=== PATIENT | male | born 1990 | race Caucasian/White ===

== ENCOUNTER 2018-02-19 11:25 | Emergency (ER) | payer BC ==
[~2018-02-19] VITALS: Ht 185.4 cm; Wt 83.2 kg
[2018-02-19 11:29] VITALS: Ht 185.4 cm; Wt 83.2 kg
--- NOTE | 2018-02-19 13:00 | DIAGNOSTIC IMAGING REPORT ---
CHEST ONE VIEW PORTABLE CLINICAL HISTORY: Left-sided chest pain SHORTNESS OF BREATH COMPARISON STUDY: No previous studies for comparison. FINDINGS: The heart is normal in size. There is no failure. There is no focal pulmonary consolidation. There are no pleural effusions. There is a 39 mm left apical pneumothorax.[ IMPRESSION: 39 mm left apical pneumothorax. Electronically signed by: Chon Puri M.D. 02/19/2018 12:58 PM Dictated Date/Time: 02/19/2018 12:57 PM
--- NOTE | 2018-02-19 14:39 | EMERGENCY ROOM VISIT NOTE ---
History Report prepared by Deshaun: Zen Romeo Under the Supervision of: Dr. Camilo Dunn D.O. First contact with patient: 11:45 Chief Complaint: SHORTNESS OF BREATH Stated Complaint: CHEST PAIN, SHORTNESS OF BREATH, SENT BY [facility] History of Present Illness The patient is a 28 year old male who presents to the Emergency Room with complaints of persistent pain in he left shoulder blade and chest that began on Sunday, 3 days ago. The patient states that the pain was initially at the bottom of his left shoulder blade and then radiated into the center of the left chest. He does feel short of breath, and has noticed becoming unusually short of breath with exertion. The patient notes that he had a pneumothorax on the right side in 2009 which he needed a chest tube for. [facility] this visit and had a chest x-ray performed. The imaging showed that he did have a collapsed lung on the left. Source of History: patient Onset: 3 days ago Position: chest (left), shoulder (left) Timing: other (persistent) Modifying Factors (Worsening): exertion Associated Symptoms: + SOB Review of Systems See HPI for pertinent positives & negatives. A total of 10 systems reviewed and were otherwise negative. Past Medical & Surgical Hx of pneumothorax. Social History Smoking Status: Never Smoker Drug Use: none Marital Status: Housing Status: lives with significant other Occupation Status: employed Current/Historical Medications No Active Prescriptions or Reported Meds Allergies Coded Allergies: No Known Allergies (Unverified , 02/19/18) Physical Exam Vital Signs Date Time Temp Pulse Resp B/P (MAP) Pulse Ox O2 Delivery O2 Flow Rate FiO2 02/19/18 14:37 77 18 100 Nasal Cannula 2.0 02/19/18 13:31 85 20 114/78 100 Nasal Cannula 2.0 02/19/18 12:43 78 02/19/18 12:40 66 16 117/73 99 Room Air 02/19/18 12:33 98 Room Air 02/19/18 11:29 36.7 73 18 124/76 99 Room Air Physical Exam CONSTITUTIONAL/VITAL SIGNS: Reviewed / noted above. GENERAL: Non-toxic in appearance. INTEGUMENTARY: Warm, dry, and [place]. HEAD: Normocephalic. EYES: without scleral icterus or trauma. ENT/OROPHARYNX: clear and moist. LYMPHADENOPATHY/NECK: Is supple without lymphadenopathy or meningismus. RESPIRATORY: Lungs clear and equal. CARDIOVASCULAR: Regular rate and rhythm. GI/ABDOMEN: Soft and nontender. No organomegaly or pulsatile mass. No rebound or guarding. Normal bowel sounds. EXTREMITIES: Warm and well perfused. BACK: No CVA tenderness. NEUROLOGICAL: Intact without focal deficits. PSYCHIATRIC: normal affect. MUSCULOSKELETAL: Normally developed with good muscle tone. Medical Decision & Procedures ER Provider Diagnostic Interpretation: Radiology results as stated below per my review and radiologist interpretation: CHEST ONE VIEW PORTABLE CLINICAL HISTORY: Left-sided chest pain SHORTNESS OF BREATH COMPARISON STUDY: No previous studies for comparison. FINDINGS: The heart is normal in size. There is no failure. There is no focal pulmonary consolidation. There are no pleural effusions. There is a 39 mm left apical pneumothorax.[ IMPRESSION: 39 mm left apical pneumothorax. Electronically signed by: Chon Puri M.D. 02/19/2018 12:58 PM Dictated Date/Time: 02/19/2018 12:57 PM ECG Per My Interpretation Indication: chest pain Rate (beats per minute): 64 Rhythm: normal sinus Findings: no acute ischemic change, no ectopy, other (No SAM/STD, No PVCs) ED Course 1151: Previous medical records were reviewed. The patient was evaluated in room C11B. A complete history and physical examination was performed. 1327: I discussed the case with Dr. Randy TEJADA Surgery. He states that he does not handle chest tubes. 1341: I discussed the case with Dr. Worley - [facility]. He states to transfer the patent to the [facility] and he will take care of it. Medical Decision the differential was considered includes acute myocardial infarction, acute coronary syndrome, myocarditis, pericarditis, pericardial effusions /tamponade, esophageal perforation, pulmonary embolism, pneumonia, pneumothorax, cardiomyopathy, congestive heart, anemia , COPD/asthma exacerbation. Patient presents from urgent care with a diagnosis of a pneumothorax. X-ray here reveals a 39 mm left apical pneumothorax. EKG shows normal sinus rhythm. Symptoms started on Sunday with some left shoulder blade pain and moved to the left anterior chest. He has some shortness of breath with exertion but otherwise no other symptoms. He reports a history of right-sided pneumothorax in 2003. I spoke with our general surgeon here, who declined accepting the patient. Our thoracic surgeon, Dr. Whitelark is not currently available. I spoke with a thoracic surgeon from [facility] who accepted the patient for transfer. The patient be transported by ambulance. He was placed on oxygen. The patient appears to be stable and I did not feel the patient needs an emergent chest tube at this time. Medication Reconcilliation Current Medication List: was personally reviewed by me Blood Pressure Screening Patient's blood pressure: Normal blood pressure Consults Time Called: 1324 Consulting Physician: Dr. Randy TYLER Surgery Returned Call: 1327 I discussed the case with Dr. Randy TYLER Surgery. He states that he does not handle chest tubes. Additional Consults: Time Called: 1335 Consulted Physician: Dr. Brunilda George [facility] Returned Call: 1341 Additional Comments: I discussed the case with Dr. Brunilda George [facility]. He states to transfer the patent to the [facility] and he will take care of it. Impression Primary Impression: Pneumothorax on left Scribe Attestation The scribe's documentation has been prepared under my direction and personally reviewed by me in its entirety. I confirm that the note above accurately reflects all work, treatment, procedures, and medical decision making performed by me. Departure Information Dispostion Transfer Acute Care Facility Prescriptions No Active Prescriptions or Reported Meds Patient Instructions My [facility]
[2018-02-19 15:00] VITALS: BP 128/71; PULSE 75
[2018-02-19 15:40] VITALS: O2SAT 99
== END 2018-02-19 15:40 | disposition short-term general hospital (02) ==
LOC: C.EDB 11:27 → C.EDC 15:40
DX: J93.9 Pneumothorax, unspecified (principal)

== ENCOUNTER → 2018-03-08 | Outpatient (CLI) | payer BC ==
--- NOTE | 2018-03-08 09:04 | DIAGNOSTIC IMAGING REPORT ---
(CHEST) THORAX WITHOUT CLINICAL HISTORY: 28 years-old Male presenting with PNEUMOTHORAX, history of 2 spontaneous pneumothoraces, one week ago with chest tube, follow-up. TECHNIQUE: Multidetector CT imaging of the chest was performed without the use of intravenous contrast. IV contrast: None. A dose lowering technique was used consistent with the principles of ALARA (as low as reasonably achievable). COMPARISON: Chest x-ray from 02/19/2018. CT DOSE (mGy.cm): The estimated cumulative dose is 297.20 mGy.cm. FINDINGS: [employer] Worker topogram: Unremarkable. On soft tissue windows, normal thyroid and thoracic inlet. No axillary, supraclavicular, or mediastinal lymphadenopathy. Evaluation of the miguel limited without intravenous contrast. Normal aorta. Normal heart size. No pericardial or pleural effusion. Upper abdomen normal. On lung windows, postsurgical changes of the posterior apical left upper lobe as well as the superior segment of the left lower lobe . Associated architectural distortion. No other focal infiltrate. Small bulla/bleb noted at the posterior right apex (series 4 image 63). Small left apical pneumothorax, which is decreased in size from prior chest x-ray. A focus of gas in the superior mediastinum near the left apex (series 4 image 49), likely tracking mediastinal gas from the left pneumothorax. On bone windows, normal osseous structures. IMPRESSION: 1. Persistent small left apical pneumothorax, which is decreased in size since prior chest x-ray allowing for differences in modalities. No right pneumothorax. 2. Postsurgical changes of the right lung. 3. Small right apical bleb/bulla. Electronically signed by: Alex Porter M.D. 03/08/2018 9:02 AM Dictated Date/Time: 03/08/2018 8:58 AM
== END | disposition home or self-care (01) ==
LOC: C.CTS 08:13
PROVIDERS: ATTEND Thoracic Surgery (Cardiothoracic Vascular Surgery)
DX: J93.9 Pneumothorax, unspecified (principal)